=== PATIENT | male | born 1980 | race African-American/Black ===

== ENCOUNTER 2024-06-24 09:56 | Emergency (ER) | payer OTHER, SELFPAY ==
--- NOTE | 2024-06-24 | ECG_ITS ---
Test Reason : cp, weakness Blood Pressure : */* mmHG Vent. Rate : 62 BPM Atrial Rate : 62 BPM P-R Int : 162 ms QRS Dur : 120 ms QT Int : 394 ms P-R-T Axes : 58 7 34 degrees QTcB Int : 399 ms Normal sinus rhythm Non-specific intra-ventricular conduction delay Borderline ECG No previous ECGs available Referred By: Generic ED Physician Electronically Signed By: ASYA SHEPPARD MD
[2024-06-24 10:24] VITALS: BP 95/62; PULSE 81; RESP 18; TEMP 36.6; O2SAT 100; BMI 29.3
[2024-06-24 10:56] LABS: MANUAL DIFF FLAG NO
[2024-06-24 10:57] LABS: Basophils Percent Auto 0.3 % (0-2); Eosinophils Absolute Auto 0.1 X10*3/uL (0.0-0.4); Eosinophils Percent Auto 4.2 % (0-4); Hematocrit 41.4 % (42.0-52.0); Hemoglobin 14.1 g/dl (14.0-18.0); Lymphocytes Absolute Auto 1.5 X10*3/uL (1.2-4.9); Lymphocytes Percent Auto 48.7 % (20-40); Mean Corpuscular HGB Conc 34.1 g/dl (31.0-36.0); Mean Corpuscular Hemoglobin 28.1 pg (27.0-33.0); Mean Corpuscular Volume 82.5 fL (80.0-98.0); Monocytes Absolute Auto 0.3 X10*3/uL (0.1-1.2); Monocytes Percent Auto 10.6 % (2-11); Neutrophils Absolute Auto 1.1 x10*3/uL (2.0-8.3); Neutrophils Percent Auto 36.2 % (45-73); Platelet Count 233 X10*3/uL (160-400); Red Blood Count 5.02 X10*6/uL (4.60-5.80); Red Cell Distribution Width 12.9 % (11.0-16.0); White Blood Count 3.1 X10*3/uL (4.8-10.8)
[2024-06-24 11:18] LABS: B Type Natriuretic Peptide < 10 pg/mL (<100)
[2024-06-24 11:32] LABS: Albumin Level 4.3 g/dL (3.5-5.0); Alkaline Phosphatase 73 U/L (39-117); Anion Gap 10 (12-20); Aspartate Amino Transferase 42 U/L (5-37); Bilirubin Total 0.4 mg/dL (0.0-1.0); Blood Urea Nitrogen 17 mg/dL (9-16); Calcium 9.3 mg/dL (8.4-10.2); Carbon Dioxide 26 mmol/L (22-29); Chloride 107 mmol/L (96-108); Creatinine Clr Calc Pharmacy 139.9; Estimated Glomerular Filt Rate > 60; Glucose Fasting 103 mg/dL (60-99); Potassium 4.1 mmol/L (3.3-5.1); Sodium 139 mmol/L (135-145); Total Protein 7.1 g/dL (6.5-8.0)
[2024-06-24 11:41] LABS: TSH reflex Free T4 1.98 uIU/mL (0.32-4.0)
[2024-06-24 11:50] LABS: Alanine Aminotransferase 92 U/L (0-40)
--- NOTE | 2024-06-24 11:54 | ED.GENADULT ---
HPI - General Adult General Chief complaint: General Medical Stated complaint: Sore Throat Time Seen by Provider: 06/24/24 11:53 Source: patient Mode of arrival: ambulatory Limitations: language barrier History of Present Illness HPI narrative: This is a 44-year-old man who presents for evaluation of thyromegaly, weight gain, diarrhea, constipation, heart palpitations, dry skin, mood swings and bilateral lower extremity edema. 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 Patient states that he has been [place]. He states that he has not seen a primary care doctor here. He states that for the last 2 months he has noticed recurrence of similar symptoms when he had a ?thyroid problem? several years ago. He states that he did not have to take any medications and did not have any the time. He states at this time he is not taking any prescription medications. He states no surgical history. He states he is a never smoker. He states that he rarely drinks alcohol. He states that over the last 2 months he has gained approximately 8 kg. He states nonbloody loose stools. He states no chest pain or dyspnea. Related Data Allergies Allergy/AdvReac Type Severity Reaction Status Date / Time No Known Allergies Allergy Verified 06/24/24 10:32 Review of Systems Review of Systems: ROS as per [facility] Social History Social History Advance Directives: No Advance Directives Information Provided: Yes Do you have a plan to hurt others: No Plan Physical Exam ED Vital Signs: Vital Signs - 24 hr 06/24/24 10:24 Temperature 97.9 F Pulse Rate 81 Respiratory Rate 18 Blood Pressure 95/62 Pulse Oximetry 100 Oxygen Delivery Method Room Air BMI result Body Mass Index 29.3 Gen: NAD, AOx3 HEENT: NCAT, EOMI, normal conjunctiva, uvula midline without edema, no posterior oropharynx erythema/exudates Neck: Supple, no overlying anterior neck skin changes, + mild thyromegaly CV: RRR, no peripheral pitting edema Pulm: CTAB, no increased work of breathing GI: Soft, NTND, no rebound, guarding or rigidity MSK: No asymmetrical calf edema/erythema/TTP Neuro: Grossly non focal Medical Decision Making Medical Decision Making MDM Narrative: Differential diagnosis includes, but is not limited to viral syndrome, hypothyroidism, electrolyte derangement. Patient is afebrile and hemodynamically stable on room air. Exam is benign and reassuring. I reviewed and interpreted the patient's labs and EKG as below. On re-examination, patient is well-appearing and in no acute distress. ?There is no indication for further emergent evaluation in this otherwise well-appearing patient as above. ?Patient is provided written and verbal instructions, educational materials, recommendations for outpatient follow-up (provided referral to primary care and Endocrinology), strict return precautions and teach back is performed. ?Patient states understanding and agreement with plan of care. ?Patient is discharged home in stable and improved condition. Admission/Observation Consideration of admission/observation: Escalation of care including admission/observation considered Lab Data MDM Lab Attestation statement: I reviewed the patient's lab results. CBC demonstrates some mild leukopenia WBC 3.1, metabolic panel overall reassuring with no evidence of acute kidney injury or clinically significant electrolyte derangement, there is no hyperbilirubinemia. There is mild transaminitis with AST 42 and ALT 92, which are nonspecific, not consistent with acute hepatitis and may be secondary to hepatic steatosis, BNP unremarkable, albumin within normal limits, TSH within normal limits 06/24/24 10:52 06/24/24 10:52 Labs: Lab Results 06/24/24 Range/Units 10:52 WBC 3.1 L (4.8-10.8) X10*3/uL RBC 5.02 (4.60-5.80) X10*6/uL Hgb 14.1 (14.0-18.0) g/dl Hct 41.4 L (42.0-52.0) % MCV 82.5 (80.0-98.0) fL MCH 28.1 (27.0-33.0) pg MCHC 34.1 (31.0-36.0) g/dl RDW 12.9 (11.0-16.0) % Plt Count 233 (160-400) X10*3/uL MPV 10.0 (9.4-12.4) fL Immature Gran % (Auto) 0.0 (0.0-0.4) % Neut % (Auto) 36.2 L (45-73) % Lymph % (Auto) 48.7 H (20-40) % Ware % (Auto) 10.6 (2-11) % Eos % (Auto) 4.2 H (0-4) % Baso % (Auto) 0.3 (0-2) % Lymph # (Auto) 1.5 (1.2-4.9) X10*3/uL Ware # (Auto) 0.3 (0.1-1.2) X10*3/uL Eos # (Auto) 0.1 (0.0-0.4) X10*3/uL Baso # (Auto) 0.0 (0.0-0.2) X10*3/uL Abs Immat Gran (auto) 0.00 (0.00-0.03) X10*3/uL Absolute Neuts (auto) 1.1 L (2.0-8.3) x10*3/uL Absolute Nucleated RBC 0.000 (0.0-0.012) X10*3/uL Nucleated RBC % (auto) 0.0 (0.0-0.2) /100WBC Sodium 139 (135-145) mmol/L Potassium 4.1 (3.3-5.1) mmol/L Chloride 107 (96-108) mmol/L Carbon Dioxide 26 (22-29) mmol/L Anion Gap 10 L (12-20) BUN 17 H (9-16) mg/dL Creatinine 0.78 (0.5-1.4) mg/dL Estim Creat Clear Calc 139.9 Estimated GFR > 60 Fasting Glucose 103 H (60-99) mg/dL Calcium 9.3 (8.4-10.2) mg/dL Total Bilirubin 0.4 (0.0-1.0) mg/dL AST 42 H (5-37) U/L ALT 92 H (0-40) U/L Alkaline Phosphatase 73 (39-117) U/L B-Natriuretic Peptide < 10 (<100) pg/mL Total Protein 7.1 (6.5-8.0) g/dL Albumin 4.3 (3.5-5.0) g/dL TSH 1.98 (0.32-4.0) uIU/mL Independent Interpretation I performed an independent interpretation of an: EKG Interpretation: EKG shows sinus rhythm at 62 beats per minute, ME 162, QRS 120, QTC 399, no STEMI Discharge Plan Discharge Clinical Impression: Thyromegaly Patient Disposition: Home, Self-Care Instructions: Hypothyroidism (ED) Additional Instructions: Voc? foi avaliado no pronto-oscar. Sua avalia??o foi, no zayra, tranquilizadora, peter achados emergenciais e sua fun??o tireoidiana estava normal. Voc? recebeu um encaminhamento para acompanhamento com um m?dico de aten??o prim?ismael ([facility], [facility] [place], [facility] [place] [facility]) e um encaminhamento para acompanhamento com um endocrinologista ([facility]). Ligue nos pr?ximos 5 a 7 ferro para agendar beto consulta de acompanhamento para que eles possam continuar a lhe prestar atendimento. [place] 600 mg de ibuprofeno com alimentos e ?gua a cada 6 horas, conforme necess?la para a claudia. Retorne ao pronto-oscar bela naeem algum sintoma dariusz ou preocupante. Referrals: [facility] [Provider Group] [facility] [Provider Group] [facility] [place] [Provider Group] [facility] [Provider Group] Print Language: Surinamese
[2024-06-24 13:38] VITALS: BP 95/62; PULSE 81; RESP 18; TEMP 36.6; O2SAT 100
== END 2024-06-24 13:39 | disposition home or self-care (01) ==
PROVIDERS: Emergency Provider Emergency Medicine
DX: E01.0 Iodine-deficiency related diffuse (endemic) goiter (principal); J02.9 Acute pharyngitis, unspecified; R07.89 Other chest pain; Z79.899 Other long term (current) drug therapy
CPT/HCPCS: 36415; 80053; 83880; 84443; 85025; 93005; 99283

== ENCOUNTER → 2024-06-24 10:44 | Outpatient (BNV) | payer OTHER, SELFPAY | PROVIDERS: Emergency Provider Emergency Medicine; Visit Provider Internal Medicine Cardiovascular Disease | DX: R07.9 Chest pain, unspecified (principal); R53.1 Weakness | CPT/HCPCS: 93010 ==